=== PATIENT | male | born 1940 | race Caucasian/White ===

== ENCOUNTER → 2020-05-10 09:51 | Outpatient (CLI) | payer MEDICARE, OTHER, SELFPAY ==
[2020-05-11 06:03] LABS: COVID19 Sendout Not Detected (Not Detect)
== END ==
PROVIDERS: PCP Family Medicine; Visit Provider Physician Assistant
DX: Z11.59 Encounter for screening for other viral diseases (principal)
CPT/HCPCS: 87635

== ENCOUNTER 2020-05-13 11:37 | Day surgery (SDC) | payer MEDICARE, OTHER, SELFPAY ==
[2020-05-06 12:53] VITALS: BMI 27.8
[2020-05-13] VITALS (14 sets, daily range): BP systolic 124–181; BP diastolic 52–84; PULSE 66–84; RESP 10–20; TEMP 35.7–36.7; O2SAT 96–100; BMI 27.8
--- NOTE | 2020-05-13 | DI.RAD.S_ITS ---
PROCEDURE: XR PELVIS 1-2V INDICATIONS: RIGHT TOTAL HIP TECHNIQUE: 1 view of the lower pelvis acquired. COMPARISON: None. FINDINGS: Bones: Patient is undergoing right hip arthroplasty, with hardware sizing components in expected positions. The hip joint appears congruent. The visualized bony structures appear intact. Soft tissues: Overlying postoperative changes are noted. No suspicious soft tissue densities. IMPRESSION: Normal alignment in preparation for placement of final components of right total hip arthroplasty. Dictated by: Matt Zarco M.D. on 05/13/2020 at 16:03 Approved by: Matt Zarco M.D. on 05/13/2020 at 16:04
--- NOTE | 2020-05-13 06:00 | DI.RAD.S_ITS ---
PROCEDURE: XR HIP W PEL IF DONE RT 2V INDICATIONS: post op films TECHNIQUE: AP pelvis and lateral view of the right hip acquired. COMPARISON: [facility], , XR PELVIS 1-2V, 05/13/2020, 15:26. FINDINGS: Bones: Patient is status post bilateral hip arthroplasty, with hardware components in expected positions. The hip joint appears congruent. The visualized bony structures appear intact. Soft tissues: Overlying postoperative changes are noted. No suspicious soft tissue densities. IMPRESSION: Expected postoperative appearance status post placement of right hip arthroplasty and stable position of left hip arthroplasty. Dictated by: Piter TERRAZAS Interpreted: Michelle Jacobo MD on 05/13/2020 at 16:45 Approved by: Michelle Jacobo M.D. on 05/13/2020 at 17:28
[2020-05-13] MEDS: CELECOXIB 200 MG CAPSULE PO (12:25)
[2020-05-13] MEDS: PREGABALIN 75 MG CAPSULE PO (12:25)
[2020-05-13] MEDS: ACETAMINOPHEN 325 MG TABLET 975 MG PO (12:25)
[2020-05-13] MEDS: LACTATED RINGERS 1,000 ML 42 ML IV ×2 (12:26→16:14)
[2020-05-13] MEDS: VANCOMYCIN 1,000 MG/200 ML PIGGYBACK 200 MG IV (13:16)
--- NOTE | 2020-05-13 13:31 | PM.PREOP ---
Pre-operative Note COVID-19 COVID-19 status: Negative Interval Note History & Physical reviewed/Exam performed by Physician: Yes Changes to H&P: No
--- NOTE | 2020-05-13 13:32 | PM.OP.1 ---
Operative Date/Time/Diagnoses Date of procedure: 05/13/20 Time of procedure: 13:58 Pre-op diagnosis: Right hip osteoarthritis Post-op diagnosis: same Procedure & Clinicians Procedure: Right total hip arthroplasty posterior approach Same procedure as scheduled: Yes Indications: The patient has had progressively worsening right hip pain with radiographic changes consistent with arthritis. Non-operative management has failed and the patient has requested total hip replacement. The risks, benefits and alternatives to surgery were discussed with the patient prior to proceeding. Risks discussed included, but were not limited to, failure to relieve pain, leg length discrepancy, dislocation, stiffness, infection, nerve damage, deep venous thrombosis, pulmonary embolism, stroke, coma, heart attack, permanent paralysis and , as well as the potential need for eventual revision of the prosthetic. Surgeon: Trinity Duarte Senior Backup Administrator: Killian Baeza Anesthesia Type: General and Spinal Operative Notes Findings: Severe right hip osteoarthritis, good stability Closure Type: primary Specimen(s): none sent Prosthetic devices, grafts, tissues, transplants, or devices: [employer]arte [employer] anthology size 54 mm R3 size 6 standard offset +0 head, 54 mm cup Applied: drain(s) Estimated Blood Loss (mL): 250 Blood products transfused: none Procedure in detail: The patient was seen in the pre-operative area, where the patient identified the right hip as the operative site and this was marked with my initials. The patient received pre-operative antibiotics and was taken to the operating room and placed on the operative table in the left lateral decubitus position after satisfactory anesthesia. A fuller brush man out was performed. The right leg was prepared from the ankle to the iliac crest with ChloroPrep in the usual fashion and draped through sterile drapes. The hip was approached through an approximately 20 cm incision centered over the greater trochanter and curving gently posteriorly as it went proximally. This was carried sharply to the fascia moi, which was divided and retracted with a self retaining retractor. The trochanteric bursa was excised with care being taken to avoid the sciatic nerve, which was identified and protected throughout the case. The short external rotators were incised and the capsulomuscular flap was raised and tagged for later repair. The hip was dislocated, and a femoral neck osteotomy performed approximately 15 mm above the lesser trochanter. Retractors were placed around the femur. The canal was opened with a box cutting osteotome, followed by a T handled reamer and a lateralizing reamer. The chili pepper broach was then used, followed by sequential broaching until there was good stability of the broach in the femur. Retractors were placed to expose the acetabulum. The labrum and central soft tissues were removed. Reaming was performed initially going up in 2 mm increments, then 1 mm increments until good bite was obtained with an odd sized reamer. The cup 1 mm larger than the last reamer was then inserted using the appropriate anteversion guides. A trial neutral liner was placed. The broach was placed in the canal. A trial head and neck were then placed and the hip relocated and checked for leg length and stability. An intraoperative film confirmed the component position and no evidence of fracture. The patient was stable in the position of sleep, of squatting, and could be put through a range of motion with 45 degrees internal rotation without dislocation. At 90 degrees flexion, internal rotation to 70? was possible before dislocation. This was felt to be satisfactory and the appropriate components were opened, and the trials were removed. The acetabular liner was impacted into position. The final stem was then impacted into the prepared femoral canal. A brief Betadine soak was performed while trialing with head options. The hip was meticulously irrigated with normal saline. Finally the femoral head was impacted onto the stem. The acetabulum was cleared of all material and the hip relocated one final time. The capsulomuscular flap was then repaired to the greater trochanter though an awl hole using the tag sutures. The short external rotators were repaired with a nonabsorbable suture. A deep drain was placed and brought out anteriorly. The fascia moi was closed with Vicryl. The subcutaneous layer was closed with barbed sutures and SteriStrips. An Aquacel Ag dressing was applied and the patient was taken to recovery having tolerated the procedure well. Complications: none Post-operative Condition: stable Disposition: Acute Care Plan for aftercare: The patient will be maintained on a standard total hip replacement protocol with weight bearing as tolerated and posterior hip precautions. The patient will receive Aspirin and sequential compression devices for DVT prophylaxis. The patient will be discharged home when safe for the home environment.
[2020-05-13] MEDS: CEFAZOLIN 2 GM/100 ML FROZ.PIGGY IV ×2 (14:20→21:06)
--- NOTE | 2020-05-13 14:47 | SUR.OPER ---
Lateral on padded OR bed. Gel axillary roll. Arms secured on padded armboard with pillow supporting top arm. Padded hip positioner braces x4 - anterior and posterior chest and pelvis. Additional gel pad used anterior pelvis. Gel pad under bottom leg from knee to foot and secured with tape over sheet.
[2020-05-13] MEDS: BUPIVACAINE 0.25% W/ EPI 30 ML VIAL 60 ML INJ (14:57)
[2020-05-13] MEDS: BUPIVACAINE LIPOSOME 266 MG/20 ML VIAL INJ (14:57)
[2020-05-13] MEDS: TRANEXAMIC ACID 1,000 MG VIAL 1000 MG INJ ×2 (15:00→15:46)
[2020-05-13] MEDS: SODIUM CHLORIDE IRRIG SOLUTION 250 ML, POVIDONE-IODINE SPONGE STICKS 1 APPLIC IRR (15:00)
[2020-05-13] MEDS: EPINEPHrine 1 MG/ML IM (16:16)
--- NOTE | 2020-05-13 16:43 | SUR.PHASEI ---
Report called to bear Hernandez on floor. Pt A&O, VSS and taking juice without problems
[2020-05-13] MEDS: LACTATED RINGERS 1,000 ML 125 ML IV (17:14)
[2020-05-13] MEDS: SIMVASTATIN 40 MG TABLET PO (21:06)
[2020-05-13] MEDS: DOCUSATE 100 MG CAPSULE PO (21:06)
[2020-05-13] MEDS: ACETAMINOPHEN 325 MG TABLET 650 MG PO (21:07)
[2020-05-13] MEDS: lisinopriL 20 MG TABLET 40 MG PO (21:49)
[2020-05-14 04:20] VITALS: BP 166/82; PULSE 75; RESP 18; TEMP 36.6; O2SAT 98
[2020-05-14] MEDS: ACETAMINOPHEN 325 MG TABLET 650 MG PO ×2 (04:48→09:56)
[2020-05-14] MEDS: CEFAZOLIN 2 GM/100 ML FROZ.PIGGY IV (04:48)
[2020-05-14] MEDS: PANTOPRAZOLE 20 MG TABLET PO (04:48)
[2020-05-14 05:57] LABS: Hematocrit 42.4 % (41-53); Hemoglobin 14.3 g/dL (13.5-17.5)
--- NOTE | 2020-05-14 07:51 | PM.PN.1 ---
Subjective Subjective Date Patient Seen: 05/14/20 Time Patient Seen: 07:51 Interval history: Patient has been up out of bed ambulating in the [place]. He has minimal pain in his hip and he notes he has do well. Exam Vital Signs (past 8 hours): - 05/14/20 04:20 Temperature 97.9 F Pulse Rate 75 Respiratory Rate 18 Blood Pressure 166/82 H Pulse Oximetry 98 Oxygen Delivery Method Room Air Oxygen Flow Rate 0 Narrative Exam Narrative: Calf is soft, dressing is dry. No pain with range of motion in hip Objective Labs Result Diagrams: 05/14/20 05:25 Labs: Laboratory Results - last 24 hr 05/14/20 05:25 Hgb 14.3 Hct 42.4 Assessment & Plan Assessment & Plan narrative: doing well after total hip arthroplasty. keep outpatient PT and follow up as scheduled.
[2020-05-14 08:11] VITALS: PULSE 80; RESP 16; O2SAT 99
[2020-05-14 08:17] VITALS: BP 171/80; PULSE 76
[2020-05-14] MEDS: DOCUSATE 100 MG CAPSULE PO (08:17)
[2020-05-14] MEDS: lisinopriL 20 MG TABLET 40 MG PO (08:17)
[2020-05-14] MEDS: LORATADINE 10 MG TABLET PO (08:18)
[2020-05-14] MEDS: AMLODIPINE 5 MG TABLET PO (08:18)
[2020-05-14 08:22] VITALS: BP 171/80; PULSE 78; RESP 18; TEMP 36.6; O2SAT 99
--- NOTE | 2020-05-14 09:10 | PT.IIE ---
Current Diagnoses Unilateral primary osteoarthritis, right hip (05/13/20) Surgery Performed Operation Date: 05/13/20 13:45 Actual Procedures p Total Hip Arthroplasty(Right) - Trinity Duarte MD Surgical History (Last Updated 05/06/20 @ 13:22 by Aditi Hermosillo, RN) History of arthroplasty of right knee (Acute ~2009) History of bilateral carpal tunnel release (Acute) History of total left hip arthroplasty (Acute 2010) Hx of appendectomy (Acute 195) Hx of bilateral cataract extraction (Acute) Hx of tonsillectomy (Acute) Status post trigger finger release (Acute) Medical History (Last Updated 05/06/20 @ 13:24 by Aditi Hermosillo RN) Atrial flutter (Acute) Easy bruisability (Acute) Glaucoma (Acute) Gout (Acute) History of prosthetic unicompartmental arthroplasty of left knee (Acute ~2014) HLD (hyperlipidemia) (Acute) HTN (hypertension) (Acute) Osteoarthritis (Acute) Pneumonia (Acute ~2008) Presence of cardiac device (Acute 04/2020) Physical Therapy Inpatient Evaluation/Re-Eval M1 PT/OT-IP Prior Functional Status Start: 05/14/20 11:27 Freq: NEEDED Status: Active Protocol: Document 05/14/20 09:10 AB (Rec: 05/14/20 11:40 AB [email or web address]) Medical Review Prior Functional Status Medical History Reviewed Yes Communication able to make needs known Mobility and Gait pt stated that he is independent with all mobilities and ambulation without AD Social History Household Members spouse Living Arrangements RV Number of Floors (Floors) Two Floors Number of Stairs To Enter/Railing? pt lives on a 5th wheel trailer: has 4 steps to enter with bilateral rails to the deck and 1 step to enter the house with L side handle by the door has 3 steps with R rail to living room Home Environment High Toilet,Walk in Shower Home Equipment Front Wheel Walker,Quad Cane, Straight Cane,Hand Held Shower ,Grab Bars In Shower Employment Status Retired M2 PT-IP Current Condition Start: 05/14/20 11:27 Freq: NEEDED Status: Active Protocol: Document 05/14/20 09:10 AB (Rec: 05/14/20 11:40 AB [email or web address]) Physical Therapy Current Condition Current Condition Evaluation Date 05/14/20 Treatment Diagnosis s/p R LEODAN posterior approach; difficulty in walking Onset Date 05/13/20 Precautions Posterior Hip Precautions No Hip Flexion > 90 degrees,No Hip Internal Rotation,No Hip Adduction Weight Bearing Status Weight Bearing Status Weight Bear as Tolerated Allowed Weight Bearing Amount (enter % WBAT RLE or #) (%) M3 PT-IP Subjective Start: 05/14/20 11:27 Freq: NEEDED Status: Active Protocol: Document 05/14/20 09:10 AB (Rec: 05/14/20 11:40 AB [email or web address]) Subjective Physical Therapy Visit Type Type Initial Evaluation Visit Start Time 09:10 Visit Stop Time 10:16 Total Visit Minutes 66 Number of BALANCING MACHINE SET UP WORKER Visits 0 Physical Therapy Visit Comments Patient Comments pt is agreeable to do PT Therapy Pain Assessment Pain When Pain Assessed During Mobility Location Right Hip Scale Used pain scale not stated Pain Management Techniques Modification of Treatment,Re- positioning,Timing of Activity with Medications M4 PT-IP Mobility and Gait Start: 05/14/20 11:27 Freq: NEEDED Status: Active Protocol: Document 05/14/20 09:10 AB (Rec: 05/14/20 11:40 AB [email or web address]) PT-Bed Mobility Assessment Supine to Sit Supine to Sit Contact Guard Assistance Sit to Supine Sit to Supine Contact Guard Assistance PT-Transfer Assessment Sit to and From Stand Sit to and from Stand Moderate Assistance,Maximum Assistance,1 Person Assistance ,Use of Upper Extremities Equipment Transfer Assistive Device Gait Belt,Front Wheeled Walker Orthotic/Prosthetic Devices or Brace: Yes Transfers Transfer Destination Bed,Chair Transfer Technique ambulated using FWW Transfer Ability Level of Assist Moderate Assistance,Maximum Assistance,1 Person Assistance ,Use of Upper Extremities Comments Mobility Comments reviewed posterior hip precautions with pt and requires cues to maintain during mobility. completed sit to stand from chair max A and max cues. completed sit < >stand from chair x 4 reps and pt requires multiple attempts to be able to complete and require mod to max A and max cues. pt with increase posterior trunk lean during pushing up from chair and during descent to chair affecting safety, control and level of assistance. pt stated that he has back problems as well. pt ambulated towards the bed CGA using FWW. completed supine < >sit CGA and cues. completed sit to stand from bed min A and cues. ambulated back towards the chair using FWW min A and cues. positioned pt on chair. educated pt on safety and also set up caregiver training for 130pm today with spouse. pt will call his spouse for caregiver training. call light and table placed within reach. Gait Assessment Gait Gait Assistance Required: Contact Guard Assist,1 Person Assist Distance (Feet) 20 Assistive Devices Assistive Device None,Front Wheeled Walker Orthotic/Prosthetic Devices or Brace: No Gait Deviations General Gait Pattern Antalgic,Decreased Stride Length,Decreased Feet Clearance,Flexed Trunk Factors Limiting Gait Function Factors Limiting Gait Function Decreased Activity Tolerance, Decreased Strength,Difficulty Following Directions,Limited Range of Motion,Pain,Poor Balance,Poor Safety Awareness Comments Gait Comments please refer to mobility section for details M5 PT-IP Objective Assessments Start: 05/14/20 11:27 Freq: NEEDED Status: Active Protocol: Document 05/14/20 09:10 AB (Rec: 05/14/20 11:40 AB [email or web address]) Orientation Orientation/Cognition Level of Alertness Alert Orientation Name Language Function Ability No Deficits Noted Safety Awareness Decreased Safety Awareness Memory Description Short Term Impaired Gross Range of Motion Lower Extremity ROM Assessment Within Functional Limits Strength Lower Extremity Strength Assessment Right Impaired Hip 3+/5 Knee 4-/5 Sensation Assessment Sensation Gross Sensation WNL Muscle Tone Muscle Tone WNL Yes M6 PT-IP Treatment Start: 05/14/20 11:27 Freq: NEEDED Status: Active Protocol: Document 05/14/20 09:10 AB (Rec: 05/14/20 11:40 AB [id number]) Physical Therapy Treatment Education Education Provided Precautions,Weight Bearing Status,Post-Op Packet,Safety M7 PT-IP Assessment and Plan Start: 05/14/20 11:27 Freq: NEEDED Status: Active Protocol: Document 05/14/20 09:10 AB (Rec: 05/14/20 11:40 AB [id number]) PT Summary Assessment and Plan Potential Rehabilitation Potential Good Status of Condition at Evaluation Stable Summary Impairments Pain,ROM,Strength,Balance, Coordination,Sensation,Tone, Cognition,Bed Mobility, Transfers,Gait,Activity Tolerance Assessment Summary pt requiring mod to max A for sit to stand and requires constant cues for hip precautions. set up caregiver training at 130 pm today with spouse and d/c plan depending if spouse will be able to assist pt safely. stair climbing trainign also will be conducted. pt stated that he is set up for outpt PT. Goals Bed Mobility Goal Independent Transfer Goal Standby Assistance,Front Wheeled Walker Gait Goal Standby Assistance,Front Wheel Walker Gait Distance 150 Days to Meet Goals 5 Frequency of Treatment Frequency Of Treatment Twice a Day Treatment Plan Physical Therapy Treatment Plan Bed Mobility Training,Transfer Training,Gait Training, Therapeutic Exercise,Balance Retraining,Post Op Education, Discharge Planning,Hot or Cold Pack,Neuromuscular Re-ed, Coordination Retraining,Manual Therapy Recommendations To Nursing Amount of Assist Needed 1 Person Assist Discharge Recommendations PT Discharge Recommendations Home with 04/04 Assist,Home Health Transportation Needs at Discharge Private Vehicle,Wheelchair/ Cabulance
[2020-05-14 12:00] VITALS: BP 153/67; PULSE 68; RESP 16; TEMP 36.4; O2SAT 99
--- NOTE | 2020-05-14 13:29 | PT.IPTN ---
Current Diagnoses Unilateral primary osteoarthritis, right hip (05/13/20) Surgery Performed Operation Date: 05/13/20 13:45 Actual Procedures p Total Hip Arthroplasty(Right) - Trinity Duarte MD Physical Therapy Treatment Note M2 PT-IP Current Condition Start: 05/14/20 11:27 Freq: NEEDED Status: Active Protocol: Document 05/14/20 09:10 AB (Rec: 05/14/20 11:40 AB [email or web address]) Physical Therapy Current Condition Current Condition Evaluation Date 05/14/20 Treatment Diagnosis s/p R LEODAN posterior approach; difficulty in walking Onset Date 05/13/20 Precautions Posterior Hip Precautions No Hip Flexion > 90 degrees,No Hip Internal Rotation,No Hip Adduction Weight Bearing Status Weight Bearing Status Weight Bear as Tolerated Allowed Weight Bearing Amount (enter % WBAT RLE or #) (%) M3 PT-IP Subjective Start: 05/14/20 11:27 Freq: NEEDED Status: Active Protocol: Document 05/14/20 13:29 AB (Rec: 05/14/20 14:51 AB [email or web address]) Subjective Physical Therapy Visit Type Type Treatment Note Visit Start Time 13:29 Visit Stop Time 14:19 Total Visit Minutes 50 Number of PLASMA SPECIALIST Visits 0 Physical Therapy Visit Comments Patient Comments agreeable to do PT. spouse in room for caregiver training Therapy Pain Assessment Pain When Pain Assessed During Mobility Pain Present Pain Present Pain Reported Location Right Hip Scale Used pain scale not stated M4 PT-IP Mobility and Gait Start: 05/14/20 11:27 Freq: NEEDED Status: Active Protocol: Document 05/14/20 13:29 AB (Rec: 05/14/20 14:51 AB [email or web address]) PT-Bed Mobility Assessment Supine to Sit Supine to Sit Standby Assistance Sit to Supine Sit to Supine Standby Assistance PT-Transfer Assessment Sit to and From Stand Sit to and from Stand Contact Guard Assistance,1 Person Assistance,Use of Upper Extremities Equipment Transfer Assistive Device Gait Belt,Front Wheeled Walker Orthotic/Prosthetic Devices or Brace: No Transfers Transfer Destination Bed Transfer Technique ambulated using FWW Transfer Ability Level of Assist Contact Guard Assistance,Use of Upper Extremities Comments Mobility Comments educated spouse on pt's precautions. educated on how to use safety belt and how to assist pt. spouse was able to put safety belt on pt and assist with sit to stand. pt ambulated towards the bed using FWW SBA to CGA. completed supine <>sit x 2 sets SBA and cues for techniques. completed sit to stand from bed CGA and ambulated towards the chair SBA using FWW. spouse is able to cue pt on how to sit to maintain hip precautions. completed sit to stand from chair SBA to CGA and ambulated towards the hallway ~ 75 ft using FWW. completed up/down steps. spouse was able to assist pt safely. pt ambulated back to his room. positioned on chair. reviewed precautions and mobility techniques. pt's FWW is too short for him and stated that they live [place] to the [address] and will be able to borrow one today. pt also stated that they will buy and RTS with handles and shower chair. call light and table positioned next to pt. informed NAC and nurse that pt is ok to d/c . Gait Assessment Gait Gait Assistance Required: Standby Assistance,Contact Guard Assist Distance (Feet) 75 Able to Maintain Weight Bearing Status Yes During Gait Assistive Devices Assistive Device Gait Belt,Front Wheeled Walker Orthotic/Prosthetic Devices or Brace: No Gait Deviations General Gait Pattern Antalgic,Decreased Stride Length,Decreased Feet Clearance,Flexed Trunk Factors Limiting Gait Function Factors Limiting Gait Function Decreased Activity Tolerance, Decreased Strength,Limited Range of Motion,Pain Stair Climbing Assessment Evaluation Level of Assist On Stairs Standby Assistance,Contact Guard Assistance,1 Person Assistance Devices Stair Climbing Assistive Devices Front Wheel Walker,Left Railing,Right Railing Technique/Endurance Stair Climbing Direction Ascend and Descend Stair Climbing Technique Step to Step Number of Steps Climbed 3 Stair Climbing Set # Repetitions (reps) 2 Comments Stair Climbing Comments completed up/down platform step CGA and cues. spouse was able to assist pt. completed up/down 3 steps using R rail ascending SBA and again using B rails SBA M5 PT-IP Objective Assessments Start: 05/14/20 11:27 Freq: NEEDED Status: Active Protocol: Document 05/14/20 09:10 AB (Rec: 05/14/20 11:40 AB [email or web address]) Orientation Orientation/Cognition Level of Alertness Alert Orientation Name Language Function Ability No Deficits Noted Safety Awareness Decreased Safety Awareness Memory Description Short Term Impaired Gross Range of Motion Lower Extremity ROM Assessment Within Functional Limits Strength Lower Extremity Strength Assessment Right Impaired Hip 3+/5 Knee 4-/5 Sensation Assessment Sensation Gross Sensation WNL Muscle Tone Muscle Tone WNL Yes M6 PT-IP Treatment Start: 05/14/20 11:27 Freq: NEEDED Status: Active Protocol: Document 05/14/20 13:29 AB (Rec: 05/14/20 14:51 AB [email or web address]) Physical Therapy Treatment Education Education Provided Precautions,Weight Bearing Status,Safety M7 PT-IP Assessment and Plan Start: 05/14/20 11:27 Freq: NEEDED Status: Active Protocol: Document 05/14/20 13:29 AB (Rec: 05/14/20 14:51 AB [email or web address]) PT Summary Assessment and Plan Potential Rehabilitation Potential Good Summary Impairments Pain,ROM,Strength,Balance, Coordination,Sensation,Tone, Cognition,Bed Mobility, Transfers,Gait,Activity Tolerance Progress Towards Goals Progressing Toward Goals Assessment Summary caregiver training conducted and spouse is able to assist pt with mobility. pt is set up for outpt PT. Pt may go home when medically stable. Goals Bed Mobility Goal Independent Transfer Goal Standby Assistance,Front Wheeled Walker Gait Goal Standby Assistance,Front Wheel Walker Gait Distance 150 Days to Meet Goals 5 Frequency of Treatment Frequency Of Treatment Twice a Day Treatment Plan Physical Therapy Treatment Plan Bed Mobility Training,Transfer Training,Gait Training, Therapeutic Exercise,Balance Retraining,Post Op Education, Discharge Planning,Hot or Cold Pack,Neuromuscular Re-ed, Coordination Retraining,Manual Therapy Recommendations To Nursing Amount of Assist Needed 1 Person Assist Discharge Recommendations PT Discharge Recommendations Home with 04/04 Assist,Home Health Transportation Needs at Discharge Private Vehicle,Wheelchair/ Cabulance
--- NOTE | 2020-05-14 14:00 | CM.DANOTE ---
Addendum entered by ALEXSANDER Franks 05/14/20 15:01: ADD: Per PT, pt was able to tolerate stairs and afternoon PT session and feels pt likely stable for home with spouse and outpt PT. SW called [facility] and cancelled new referral. BF Original Note: Patient is an 79 year old male who was admitted on 05/13/20 for Right LEODAN. Pt has [facility] and [facility] for insurance and his PCP is Dr. Jairo Banda. EMR was reviewed. Per Ortho MD, pt tolerated procedure well and pending further PT today then pt can likely d/c home this afternoon with no identified barriers. Per PT, recommending likely home with spouse in their RV and possible HH vs outpt PT. Pt already set up with outpt PT at d/c. SW met bedside with pt and explained role and pt confirms he lives near [place] with his in their RV and pt is independent with ADL's at baseline and drives and denies any hx of SNF or HH. Pt had a previous LTHA a few years ago and was able to d/c home with outpt PT at that time as well. Pt is agreeable with HH if needed but will complete stairs and CG training with PT early afternoon. SW stopped by the room and PT was just about to do stairs training with pt and no HH preference at this time. GLENDA Nicholas faxed new referral to [facility] based on Vendor Calendar and F2F signed and included in case HH needed at d/c. Plan: SW to follow closely after PT stairs right now with pt to determine HH vs outpt PT and if pt stable for d/c today vs tomorrow pending stairs. ALEXSANDER Franks Discharge Planning/Care Management Advanced directive, confirm from FAMILY Start: 05/13/20 17:13 Freq: Q24H Status: Active Protocol: Document 05/13/20 17:13 LDV (Rec: 05/13/20 18:29 LDV [id number]) Advance Directive, confirm on record Time 18:00 Person contacted Pt Copy received No CM Discharge Assessment Start: 05/14/20 13:58 Freq: Status: Active Protocol: Document 05/14/20 13:58 BF (Rec: 05/14/20 14:00 BF [id number]) Discharge Planning Assessment Assigned Baling Press Operator ALEXSANDER Razo DPOA/Assigned Designee Name spouse Mary Jane Contact Information [phone] Advance Directives? Yes Advance Directives on File No History Provided By Patient,Medical Record Has Patient been admitted in last 30 No days? Prior Living Arrangements RV Household Members spouse Type of transporation used prior to Drives own vehicle admit Independent with ADL's Yes Is patient alert and oriented? Yes Needs Assistance With Home Chores / Shopping Caregiver for Another No DME Already Rented / Owned FWW / Walker Patient/Family Preference Home with Home Health Barriers to Discharge No Discharge Plan Home with Home Health Transportation Arrangement Spouse will be bedside later today and can provide tranport Referrals Initiated Home Health If patient plan is home with home health Yes : Has signed face to face form been completed? Medicare Choice List Provided Yes SNF/HH Preference Ev Has Agency SNF been contacted Yes Whiteboard Updated in Patient Room with Yes name and ext. # of Baling Press Operator Review Status In Process Please Provide Date Initial DC 05/14/20 Assessment Was Performed Next Review Type Continued Stay Review Pre-Anesthesia Assessment Start: 05/06/20 12:53 Freq: Status: Active Protocol: Document 05/06/20 12:53 CAB (Rec: 05/06/20 13:51 CAB [id number]) Pre-Anesthesia Assessment Patient Information Reviewed Via Phone Assessment Assessment Completed With Patient Comment LABs/EKG done per pt-not available at time of PAC-COVID screen @ 05/10/20 Primary Care Provider Jairo Banda Seen Specialist in Last 12 Months Yes Specialist Seen Rope Cutter,Opthamologist/ Coal Shoveler,Orthopedist Primary Language Estonian Project Management Manager Required No Height 176.53 cm Weight 86.636 kg Body Mass Index (BMI) 27.8 Hearing Ability Normal Visual Assist Glasses Dentition Type Teeth, Natural Present,Teeth, Missing Barriers to Learning None Other Aids Yes: Mouthguard Hx Anesthesia Reactions No Hx Family Anesthesia Reaction No Hx Malignant Hyperthermia No Hx Blood Transfusions No Anesthesia Review Requested Yes: Surgeon requested re: Cardiac alcohol intake current alcohol intake frequency 3 or more drinks per day Smoking Status Former smoker Tobacco type cigarettes,pipe how long ago did patient quit smoking Quit age 28, smoked a pipe, then stopped age approx 38 Substance Use Type does not use Pain Present Pain Reported Musculoskeletal Symptoms Difficulty Walking,Joint Pain History of Falling (Recent or History of No ) Patient is completely paralyzed or No completely immobile Mental Status Oriented to own ability Is patient on oxygen? No Does patient have GONSALEZ/SOB No Hx Sleep Apnea No Currently Taking a Beta Arlet No Can You Climb a Flight of Stairs Without Yes SOB Hx Chest Pain No Hx SOB No Hx Syncope or Dizziness No Anti-Coagulant Therapy Yes: Hugh-pt will check w/ surgeon on when to hold Has a Rope Cutter Yes: Dr. Moran-last visit 04/17/20 Cardiac Testing No Hx Pacemaker/ICD No Pacemaker Rep Required? No Cardiac Clearance Received Yes Comment Pt previously very active, recently reduced activity r/t hip pain Additional comment Cardiac records scanned to record Diet Type At Home Regular dysphagia No Gastrointestinal Symptoms Constipation Bladder Pattern Frequency,Urgency Urinary Catheter Present No Hx Urinary Self Catheterization No Diabetes No Presence of External or Internal Medical Yes: Bilat eye lens, right Devices knee/left hip prosthesis Have you had any close contact with No someone diagnosed with COVID-19? Marital Status Lives With spouse Prior Living Arrangements RV Support System Spouse Does the Patient Have Assistance After Yes Surgery Patient Discharge Plan Description Return Home Comment Pt advised 2 day length of stay per surgeon Feels Safe in Current Environment Yes Been Physically Hurt or Threatened By a No Person in Current Environment Do you have thoughts of harming yourself None or others? Are you currently considering suicide? No Do you have a plan to hurt yourself or No Plan others? Do You Have Any Spiritual Beliefs That No May Affect Your HC Choices? Do You Have Any Cultural Practices That No May Affect Your HC Choices? Comment Sabianist Who Can We Speak to About Patient's Care Family, friends Identifying Code for Release of Patient Declines to issue Information Health Care Proxy/Next of Kin Mary Jane () Health Care Proxy Emergency Contact Name Marylu (daughter) Dinh( son) Emergency Contact Phone Number Marylu: [phone] Dinh: Pt to update dos Advance Directives? Yes Advance Directives on File No Requested Patient Bring Advanced Yes Directives DOS Power of Shed Boss Yes Power of Shed Boss Name Mary Jane () Power of Shed Boss PAC Instructions Durable medical equipment, Medications to take/avoid, Nasal antibiotic,No ETOH/ petroleum product on skin DOS, Pre-surgical wash,Sturdy shoes /comfortable clothes,Do not bring valuables and remove jewelry
[2020-05-14 15:35] VITALS: BP 153/71; PULSE 71; RESP 18; TEMP 36.8; O2SAT 97
--- NOTE | 2020-05-14 15:49 | PC.NURSE ---
Addendum entered by Elizabeth Ann R.N. 05/14/20 17:41: IV dc'd. discharge instruction given to patient. paper work and script with patient. all belongings returned. Original Note: HV dc'd
== END 2020-05-14 16:31 | disposition home or self-care (01) ==
LOC: OR 11:43 → AC 11:45
PROVIDERS: PCP Family Medicine; Referring Provider Family Medicine; Visit Provider Orthopaedic Surgery
PROC: 0SR90JZ Replacement of Right Hip Joint with Synthetic Substitute, Open Approach (ICD-10-PCS; CPT 27130; principal; 2020-05-13 13:45)
DX: M16.11 Unilateral primary osteoarthritis, right hip (principal); I10 Essential (primary) hypertension; Z96.642 Presence of left artificial hip joint
CPT/HCPCS: 27130; 36415; 72170; 73502; 85014; 85018; 94762; 97161; 97530; C1776; C9290; J0171; J0690; J1100; J2250; J2405; J2704; J3010